=== PATIENT | male | born 1980 | race Caucasian/White ===

== ENCOUNTER 2017-03-19 02:03 | Emergency (ER) | payer SELFPAY ==
[~2017-03-19] VITALS: Ht 180.3 cm; Wt 86.2 kg
[2017-03-19 02:29] LABS: HEMATOCRIT 51.1 % (38.0-50.0); HEMOGLOBIN 17.8 G/DL (12.5-16.6); MCH 32.1 PG (29.0-34.0); MCHC 34.8 G/DL (30.0-36.0); MCV 92.1 FL (86-99); PLATELET COUNT 275 K/uL (156-360); RBC DIS.WIDTH-CV 12.3 % (11.8-14.6); RBC DIS.WIDTH-SD 42.2 % (39-53); RED BLOOD COUNT 5.55 M/uL (4.00-5.50); WHITE BLOOD COUNT 23.9 K/uL (4.1-10.2)
[2017-03-19 02:40] LABS: ALBUMIN 4.7 g/dL (3.2-4.8); CHLORIDE 110 mEq/L (99-109); POTASSIUM 4.1 mEq/L (3.7-5.4); SODIUM 144 mEq/L (136-147)
[2017-03-19 02:43] LABS: GLUCOSE 122 mg/dL (70-99); TOTAL PROTEIN 7.7 g/dL (6.4-8.3)
[2017-03-19 02:44] LABS: TOTAL BILIRUBIN 0.1 mg/dL (0.0-1.0)
[2017-03-19 02:45] LABS: SERUM ETHYL ALCOHOL 317 mg/dL
[2017-03-19 02:46] LABS: ALKALINE PHOSPHATASE 99 IU/L (3-129); CREATININE 0.8 mg/dL (0.6-1.3); GFR ESTIMATE (CALCULATED) > 59 mL/min/ (58.99-99999)
[2017-03-19 02:47] LABS: UREA NITROGEN (BUN) 14 mg/dL (9-23)
[2017-03-19 02:48] LABS: AST (GOT) 29 IU/L (2-34)
[2017-03-19 02:49] LABS: ALT (GPT) 25 IU/L (3-49)
[2017-03-19 02:58] LABS: CREATINE KINASE 354 IU/L (1-294)
[2017-03-19 05:30] VITALS: BP 108/72
== END 2017-03-19 05:43 | disposition home or self-care (01) ==
LOC: EME 02:03
PROVIDERS: Emergency Medicine
PROC: 3E0234Z Introduction of Serum, Toxoid and Vaccine into Muscle, Percutaneous Approach (ICD-10-PCS; principal; 2017-03-19)
DX: T68.XXXA Hypothermia, initial encounter (principal); X31.XXXA Exposure to excessive natural cold, initial encounter; F10.129 Alcohol abuse with intoxication, unspecified; Y90.8 Blood alcohol level of 240 mg/100 ml or more; S00.81XA Abrasion of other part of head, initial encounter; S02.2XXA Fracture of nasal bones, initial encounter for closed fracture; S02.5XXA Fracture of tooth (traumatic), initial encounter for closed fracture; W19.XXXA Unspecified fall, initial encounter; Z23 Encounter for immunization; F17.200 Nicotine dependence, unspecified, uncomplicated
CPT/HCPCS: 70450; 70486; 80053; 81003; 82550; 85027; 93005; 99281; 99285; G0480; J7030